=== PATIENT | male | born 1970 | race Caucasian/White ===

== ENCOUNTER 2024-06-09 12:28 | Inpatient (IN) ==
--- NOTE | 2024-06-09 12:57 | XRay Report ---
XR chest 1V not portable HISTORY: 53 years-old Male Chest pain, nonspecific COMPARISON: None TECHNIQUE: AP view of the chest FINDINGS: Heart size is enlarged. Pulmonary vascular congestion. No pneumothorax. Trace pleural effusions with mild bibasilar opacities. Bones appear intact. IMPRESSION: 1. Cardiomegaly with pulmonary vascular congestion. 2. Trace pleural effusions with mild bibasilar atelectasis. ACT 112: Negative or not required by law. The above report was generated using voice recognition software. It may contain grammatical, syntax o r spelling errors. Electronically signed by: Avni Mckeon M.D. 06/09/2024 12:55 PM
[2024-06-09 13:02] LABS: Basophils # (auto) 0.07 K/uL (0.00-0.20); Basophils % (auto) 0.7 %; Eosinophils # (auto) 0.16 K/uL (0.00-0.50); Eosinophils % (auto) 1.6 %; Hematocrit (blood only) 45.2 % (42.0-52.0); Immature Granulocytes # (auto) 0.06 K/uL (0.01-0.20); Immature Granulocytes % (auto) 0.6 %; Lymphocytes # (auto) 1.98 K/uL (1.20-3.40); Lymphocytes % (auto) 20.3 %; Mean Corpuscular Hemoglobin 27.9 pg (25.0-34.0); Mean Corpuscular Hgb Conc 33.2 g/dL (32.0-36.0); Mean Platelet Volume 10.2 fL (9.4-12.4); Monocytes % (auto) 5.1 %; Neutrophils # (auto) 6.97 K/uL (1.40-6.50); Neutrophils % (auto) 71.7 %; Platelet Count 237 K/uL (130-400); RDW Coefficient of Variation 13.6 % (11.5-14.5); RDW Standard Deviation 41.1 fL (36.4-46.3); Red Blood Count 5.38 M/uL (4.70-6.10); White Blood Count 9.74 K/ul (4.8-10.8)
[2024-06-09 13:16] LABS: Albumin Globulin Ratio 1.4 (0.9-2); Albumin Level 4.1 gm/dl (3.4-5.0); BUN Creatinine Ratio 12.6 (10-20); Bilirubin,Total 0.5 mg/dl (0.2-1.0); Calcium 9.3 mg/dl (8.6-10.3); Creatinine Clr Calc Pharmacy 79.6 ml/min; Potassium 3.8 mmol/L (3.5-5.1); Total Protein 7.1 gm/dl (6.0-8.3)
[2024-06-09 13:26] LABS: Partial Thromboplastin Time 27 Seconds (21-31); Prothrombin Time 11.3 Seconds (9.0-12.0)
[2024-06-09 13:39] LABS: Troponin I High Sensitivity 57.6 pg/ml (0-20)
[2024-06-09] MEDS: OPTIRAY 320 125ml IV ONE (14:31)
--- NOTE | 2024-06-09 14:45 | CT Scan Report ---
CT pulmonary angiogram with IV contrast History: Chest pain COMPARISON: None TECHNIQUE: CT angiography of the chest was performed without IV contrast followed by IV contrast, including 3D post processing CTA image reconstruction. Dose reduction techniques were achieved by using automatic exposure control and/or adjustment of mA and/or kV according to patient size and/or use of iterative reconstruction technique. FINDINGS: Diagnostic quality: Adequate There is no evidence for pulmonary embolism. The heart is enlarged. There is no pericardial effusion. There are no abnormally enlarged hilar or mediastinal lymph nodes. The central tracheobronchial tree is clear. There are moderate bilateral pleural effusions. Interstitial pulmonary edema seen throughout the lung bases. Limited visualized upper abdomen. No destructive osseous changes are seen. IMPRESSION: No evidence for pulmonary embolism. Cardiomegaly, pulmonary edema, and pleural effusions, which may be related to CHF Electronically signed by Derek Garcia 06-09-2024 2:45 PM
--- NOTE | 2024-06-09 15:13 | Emergency Department Note ---
Impression & Plan Acute non-ST elevation myocardial infarction (NSTEMI), New onset of congestive heart failure ED Provider Note NAME: ESTHER MORATAYA AGE: 53 SEX: M : 1970 ARRIVES VIA: Walk-In INFORMANT: Patient, ED PROVIDER(S): Prashanth Millan MD CHIEF COMPLAINT: Shortness of breath, chest pain HPI: This is a 53-year-old male presenting for chest pain shortness of breath. Patient notes that for the past 2 weeks he has had chest tightness. He notes he is getting increasingly short of breath with exertion. He notes that his chest tightness is still there and getting worse as well. He has applied chest pain occasionally as well. He notes pain rating down his left arm/hand. He reports no syncope. Patient's family history of high blood pressure, no other significant medical history. Has not seen a doctor in over 1 year. ROS: See above HPI for pertinent positives & negatives. A total of 10 systems reviewed and were otherwise negative. PAST MEDICAL HISTORY: See Below PAST SURGICAL HISTORY: See Below FAMILY HISTORY: See Below SOCIAL HISTORY: See Below HOME MEDICATIONS: See Below ALLERGIES: See Below VITALS: See Below PHYSICAL EXAMINATION: General: Chronically unwell appearing Head: Normocephalic and atraumatic Eyes: Normal inspection, extraocular muscles intact Ear, nose, throat: Normal external exam Neck: Normal range of motion Respiratory: speaking in full sentences, symmetric chest rise, no respiratory distress Cardiovascular: Tachycardic regular rate/rhythm Extremities: moves all extremities Neuro: The patient awake and alert, appropriately conversive, symmetric faces, no focal deficits MEDICAL DECISION MAKING: Is a 53-year-old male presented for chest pain and shortness of breath. -Consider ACS, PE, CHF, NSTEMI with sequelae of CHF -ECG independently interpreted by me with sinus tachycardia rate of 112, normal AL, normal QRS, normal QTc, no ST segment elevations consistent with STEMI criteria -Chest x-ray reveals cardiomegaly with pulm vascular congestion, no pneumothorax -Blood work is reviewed showing no leukocytosis or anemia. His lites are within normal limits. Creatinine is elevated 1.43. His troponin is elevated over 57. -Due to his elevated troponin, tachycardia, shortness of breath will rule out PE. -CT imaging of the chest reveals cardiomegaly, pleural effusions. No PEs are noted upon Independently interpreted interpretation. -Official radiology read confirms similar. -Will give heparin at this time for NSTEMI, Lasix for suspected CHF. Differential diagnosis: See above ER treatment provided: See below Diagnostics interpreted by me: ECG: See above] Cardiac Monitoring: An order was placed for continuous cardiac monitoring. The monitor shows a rate of 115 with sinus rhythm. Laboratory studies: As stated above and show below. Imaging studies: See below. Critical Care Note: I have personally spent 45 minutes of critical care time in the direct management of this patient. This includes bedside care, interpretation of diagnostic studies, and testing, discussion with consultants, patient, and family members, and other required patient management activities. This 45 minutes is in excess of all separately billable procedures. Past Med/Surg History Problem List (Updated 06/09/24 @ 19:01 by Prashanth Millan MD) New onset of congestive heart failure (Acute) Acute non-ST elevation myocardial infarction (NSTEMI) (Acute) Acute kidney injury Hypertension Shortness of breath Social History Smoking Status: Never smoker Tobacco Type: Smokeless Tobacco (Dip or Chew) Smoking End Date: t; Do You Dip or Chew Tobacco: Yes; Tobacco Cessation Education Requested by Patient: No Hx Alcohol Use: Yes Alcohol type: beer Hx Substance Use: No Preferred Language: Bahraini Communication Ability: Effective Manager Dental Required: No Beliefs That Will Affect Care: None Current Living Situation: Alone Current Living Situation Comment: in camper or motel while remodeling home Other Information That Helps Us Care for You: No Feels Safe at Home: Yes Safety Concerns: Feels Safe At This Time Assistive Devices: None Allergies Allergies Allergy/AdvReac Type Severity Reaction Status Date / Time No Known Allergies Allergy Unverified 06/09/24 15:57 Home Meds Home Medications Medication Instructions Recorded Confirmed hydralazine 50 mg tablet 50 mg 06/09/24 Results & Data (ED) Vital Signs Vital Signs - 24 hr 06/09/24 12:31 06/09/24 12:58 06/09/24 12:58 Temperature 36.4 C L Temperature Source Temporal Artery Scan Pulse Rate 121 H Pulse Rate [Apical] Pulse Rhythm Regular Pulse Rhythm [Apical] Pulse Strength Normal Pulse Strength [Apical] Respiratory Rate 20 Respiratory Effort / Characteristics Non-Labored Spontaneous Respiratory Depth Normal Respiratory Pattern Regular Blood Pressure 210/149 H Blood Pressure Mean 169 Pulse Oximetry 96 Oxygen Delivery Method Room Air Room Air Room Air Sepsis Recent Fever Within 48 Hours No Sepsis New/Unexplained Change in Mental Status N/A Sepsis Action Taken by Nursing No Action Required 06/09/24 13:12 06/09/24 13:14 06/09/24 13:24 Temperature Temperature Source Pulse Rate 104 H 102 H 107 H Pulse Rate [Apical] Pulse Rhythm Pulse Rhythm [Apical] Pulse Strength Pulse Strength [Apical] Respiratory Rate Respiratory Effort / Characteristics Respiratory Depth Respiratory Pattern Blood Pressure Blood Pressure Mean Pulse Oximetry Oxygen Delivery Method Sepsis Recent Fever Within 48 Hours Sepsis New/Unexplained Change in Mental Status Sepsis Action Taken by Nursing 06/09/24 13:30 06/09/24 13:30 06/09/24 13:42 Temperature Temperature Source Pulse Rate 103 H 85 Pulse Rate [Apical] Pulse Rhythm Pulse Rhythm [Apical] Pulse Strength Pulse Strength [Apical] Respiratory Rate 22 Respiratory Effort / Characteristics Respiratory Depth Respiratory Pattern Blood Pressure 186/130 H Blood Pressure Mean 148 Pulse Oximetry Oxygen Delivery Method Sepsis Recent Fever Within 48 Hours Sepsis New/Unexplained Change in Mental Status Sepsis Action Taken by Nursing 06/09/24 15:00 Temperature Temperature Source Pulse Rate Pulse Rate [Apical] 109 H Pulse Rhythm Pulse Rhythm [Apical] Regular Pulse Strength Pulse Strength [Apical] Normal Respiratory Rate 24 Respiratory Effort / Characteristics Non-Labored Spontaneous Respiratory Depth Normal Respiratory Pattern Regular Blood Pressure Blood Pressure Mean Pulse Oximetry 96 Oxygen Delivery Method Room Air Sepsis Recent Fever Within 48 Hours Sepsis New/Unexplained Change in Mental Status Sepsis Action Taken by Nursing Laboratory Data 06/09/24 12:40 06/09/24 12:40 Lab Results 06/09/24 06/09/24 Range/Units 12:40 14:42 WBC 9.74 (4.8-10.8) K/ul RBC 5.38 (4.70-6.10) M/uL Hgb 15.0 (14.0-18.0) g/dl Hct 45.2 (42.0-52.0) % MCV 84.0 (80.0-100.0) fL MCH 27.9 (25.0-34.0) pg MCHC 33.2 (32.0-36.0) g/dL RDW Std Deviation 41.1 (36.4-46.3) fL RDW Coeff of Doris 13.6 (11.5-14.5) % Plt Count 237 (130-400) K/uL MPV 10.2 (9.4-12.4) fL Immature Gran % (Auto) 0.6 % Neut % (Auto) 71.7 % Lymph % (Auto) 20.3 % [place] % (Auto) 5.1 % Eos % (Auto) 1.6 % Baso % (Auto) 0.7 % Neut # (Auto) 6.97 H (1.40-6.50) K/uL Lymph # (Auto) 1.98 (1.20-3.40) K/uL [place] # (Auto) 0.50 (0.11-0.59) K/uL Eos # (Auto) 0.16 (0.00-0.50) K/uL Baso # (Auto) 0.07 (0.00-0.20) K/uL Immature Gran # (Auto) 0.06 (0.01-0.20) K/uL PT 11.3 (9.0-12.0) Seconds INR 1.0 (0.9-1.1) APTT 27 (21-31) Seconds PTT Ratio 1.0 Sodium 141 (136-145) mmol/L Potassium 3.8 (3.5-5.1) mmol/L Chloride 106 (98-107) mmol/L Carbon Dioxide 26 (21-32) mmol/L Anion Gap 9 (3-11) BUN 18 (6-23) mg/dl Creatinine 1.43 H (0.6-1.4) mg/dl Est Cr Clr Drug Dosing 79.6 ml/min eGFR 58.59 BUN/Creatinine Ratio 12.6 (10-20) Glucose 155 H (70-99(Fasting)) mg/dl Calcium 9.3 (8.6-10.3) mg/dl Total Bilirubin 0.5 (0.2-1.0) mg/dl AST 30 (13-39) U/L ALT 57 H (7-52) U/L Alkaline Phosphatase 63 (34-104) U/L Troponin I High Sens 57.6 H* 59.0 H* (0-20) pg/ml Total Protein 7.1 (6.0-8.3) gm/dl Albumin 4.1 (3.4-5.0) gm/dl Globulin 3.0 (2.5-4.0) gm/dl Albumin/Globulin Ratio 1.4 (0.9-2) Administered Medications Heparin Sodium/Dextrose (Heparin Sodium/Dextrose) 25,000 units in 500 mls @ 20 mls/hr IV .Q24H TERRELL; Protocol Stop: 07/09/24 16:14 Last Admin: 06/09/24 16:09 Dose: 1,000 units/hr, 20 mls/hr Documented By: AN Co-signed By: Discontinued Medications Aspirin (Aspirin 81 Mg Ectab) 81 mg PO NOW STA Stop: 06/09/24 16:06 Last Admin: 06/09/24 16:26 Dose: 81 mg Documented By: Furosemide (Furosemide 40 Mg/4 Ml Vial) 40 mg IV ONE ONE Stop: 06/09/24 15:04 Last Admin: 06/09/24 15:45 Dose: 40 mg Documented By: AN Heparin Sodium/Dextrose (Heparin Iv Adult Wt-Based Low-Dose *No* Initial Bolus Protocol) 1 each IV ONE STA; Protocol Stop: 06/09/24 15:05 Last Admin: 06/09/24 16:11 Dose: Not Given Documented By: AN Hydralazine HCl (Hydralazine Hcl 20 Mg/Ml Vial) 10 mg IV NOW STA Stop: 06/09/24 16:04 Last Admin: 06/09/24 16:27 Dose: 10 mg Documented By: Ioversol (Optiray 320 125ml) 112 ml IV ONCE ONE Stop: 06/09/24 14:32 Last Admin: 06/09/24 14:31 Dose: 112 ml Documented By: LASHAE Metoprolol Tartrate (Metoprolol Tartrate 25 Mg Tab) 12.5 mg PO NOW STA Stop: 06/09/24 16:33 Last Admin: 06/09/24 16:48 Dose: 12.5 mg Documented By: SORAYA Metoprolol Tartrate (Metoprolol Tartrate 25 Mg Tab) 25 mg PO ONE ONE Stop: 06/09/24 18:13 Last Admin: 06/09/24 18:29 Dose: 25 mg Documented By: GONZALEZ Imaging Data Radiologist's Impression: Chest X-Ray 06/09/24 12:35 XR chest 1V not portable HISTORY: 53 years-old Male Chest pain, nonspecific COMPARISON: None TECHNIQUE: AP view of the chest FINDINGS: Heart size is enlarged. Pulmonary vascular congestion. No pneumothorax. Trace pleural effusions with mild bibasilar opacities. Bones appear intact. IMPRESSION: 1. Cardiomegaly with pulmonary vascular congestion. 2. Trace pleural effusions with mild bibasilar atelectasis. ACT 112: Negative or not required by law. The above report was generated using voice recognition software. It may contain grammatical, syntax or spelling errors. Electronically signed by: Avni Mckeon M.D. 06/09/2024 12:55 PM Chest CTA 06/09/24 14:03 CT pulmonary angiogram with IV contrast History: Chest pain COMPARISON: None TECHNIQUE: CT angiography of the chest was performed without IV contrast followed by IV contrast, including 3D post processing CTA image reconstruction. Dose reduction techniques were achieved by using automatic exposure control and/or adjustment of mA and/or kV according to patient size and/or use of iterative reconstruction technique. FINDINGS: Diagnostic quality: Adequate There is no evidence for pulmonary embolism. The heart is enlarged. There is no pericardial effusion. There are no abnormally enlarged hilar or mediastinal lymph nodes. The central tracheobronchial tree is clear. There are moderate bilateral pleural effusions. Interstitial pulmonary edema seen throughout the lung bases. Limited visualized upper abdomen. No destructive osseous changes are seen. IMPRESSION: No evidence for pulmonary embolism. Cardiomegaly, pulmonary edema, and pleural effusions, which may be related to CHF Electronically signed by Derek Garcia 06-09-2024 2:45 PM Discharge Plan Visit Data Chief Complaint: Cardiac Assessment Stated Complaint: TIGHT CHEST, SOB, L HAND NUMBNESS ED Provider: Prashanth Millan Discharge Problem: Acute non-ST elevation myocardial infarction (NSTEMI), New onset of congestive heart failure Patient Disposition: Admitted As Inpatient Discharge Instructions Interventions: ED Discharge Assessment Last Done: 06/09/24 17:12
[2024-06-09] MEDS ORDERED: HEPARIN SODIUM/DEXTROSE 25,000 UNITS/500 ML BAG IV SCH (15:30)
[2024-06-09] MEDS: FUROSEMIDE 40 MG/4 ML VIAL IV ONE ×2 (15:45→21:05)
--- NOTE | 2024-06-09 15:48 | History & Physical Report ---
Date of Service June 09, 2024 Assessment & Plan (1) Shortness of breath: (2) Hypertension: (3) Acute kidney injury: Plan Pt is a 53 yo male with a past medical history of HTN and bilateral knee arthritis s/p multiple knee surgeries that presents to the hospital on 06/09 for progressive shortness of breath x3 weeks. #Shortness of breath - CXR and CT chest on admission showed cardiomegaly, pulm vasc congestion, trace pleural effusions all suggestive of volume overload - EKG without ST elevations - trop 57 -> 59 on admission - ultimately suspect his imaging/labs most suggest CHF as the cause of his presenting symptoms - given 40 mg IV lasix by ED, will repeat dose tonight at 8pm along with a pm po hydralazine dose - am lipids and HA1c ordered - echo ordered; pending - consider cardiology consult once echo is resulted #HTN - BPs on admission significantly elevated, last dose of home hydralazine was 100 mg at 7 am - at home has hydralazine 50 mg BID but takes as a once 100mg qam dose - will give hydralazine 10 mg IV + metoprolol 12.5 po now - tomorrow to start po hydralazine 50 mg as TID dosing (home is BID) but may need to switch to a new oral medication here or outpatient since compliance with dosing more than once a day may be difficult - added metoprolol 12.5 qam #MARIUM - Cr 1.42 on admission, no hx CKD per pt - given once daily 1770-4435 mg ibuprofen use for knee arthritis, suspect prerenal in nature - hold NSAIDs and other nephrotoxic agents at this time - in setting of likely CHF, encouraged po fluids DVT ppx: heparin pending echo and possible cardio eval Lines: PIV, no linda on admission IVF: none Dispo: Med/surg + Tele History of Present Illness Chief Complaint: Shortness of breath Primary Care Provider: Alexander Soto MD Pt is a 53 yo male with a past medical history of HTN and bilateral knee arthritis s/p multiple knee surgeries that presents to the hospital on 06/09 for progressive shortness of breath x3 weeks. He states that prior to the 3 weeks he felt fine, no issues with shortness of breath at rest or with activity. He states he never really had any chest pain but did notice some chest tightness this morning when picking up his work bag, which is ultimately prompted him to be evaluated today. The shortness of breath had been constant for 3 weeks, maybe worse with activity but unclear if worse when laying flat or going anything in particular. He states he has to work on Tuesday so he would like to get out of here before then. He states his dad has a history of NC but he was not sure at what age. He states that he was told at some point he may have had a heart attack but does not follow with cardiology and has never had a heart stent placed. He last saw his PCP over 1 year ago. His HTN is treated with hydralazine at home, of which he is prescribed as 50 mg BID but he states he knows he will forget to take the evening dose so he just takes it instead as 100 mg in the morning. He states he also uses ibuprofen almost daily and will take 0957-8219 mg once in the morning before work with dose depending on how much work he needs to do that day due to his knee pain from arthritis, but states that he seems to only need to take it once daily. He states he was also on metformin in the past but states he stopped that a long while ago and that he was never formally diabetic. He states right now he feels relatively fine, some improvement in his SOB. No nausea or vomiting. No headaches or vision changes. Alcohol use: denies Tobacco use: snuff, daily Other drug use: denies Allergies Allergy/AdvReac Type Severity Reaction Status Date / Time No Known Allergies Allergy Unverified 06/09/24 15:57 Home Medications Medication Instructions Recorded Confirmed Type hydralazine 50 mg tablet 50 mg 06/09/24 History Past Med/Surg History Problem List (Updated 06/09/24 @ 16:33 by Kim Kyle DO) Acute kidney injury Hypertension Shortness of breath Social History Smoking Status: Never smoker Tobacco Type: Smokeless Tobacco (Dip or Chew) Smoking End Date: t; Do You Dip or Chew Tobacco: Yes; Tobacco Cessation Education Requested by Patient: No Hx Alcohol Use: Yes Alcohol type: beer Hx Substance Use: No Preferred Language: Bengali Communication Ability: Effective Seat Joiner Required: No Beliefs That Will Affect Care: None Current Living Situation: Alone Current Living Situation Comment: in camper or motel while remodeling home Other Information That Helps Us Care for You: No Feels Safe at Home: Yes Safety Concerns: Feels Safe At This Time Assistive Devices: None Review of Systems Review of Systems: Per HPI. Physical Exam Physical Exam: General: Alert and oriented, no acute distress, HEENT: Normocephalic, moist oral mucosa, Cardio: Regular rate and rhythm, no murmur, Resp: Lungs clear to auscultation b/l, no wheezes or rhonchi, GI: Soft and nontender, nondistended, bowel sounds active Skin: Warm, pink, dry, Results & Data Results & Data Vital Signs (Past 12 Hours) Vital Signs Temp Pulse Resp BP Pulse Ox O2 Del Method 06/09/24 13:42 85 06/09/24 13:30 186/130 H 06/09/24 13:30 103 H 22 06/09/24 13:24 107 H 06/09/24 13:14 102 H 06/09/24 13:12 104 H 06/09/24 12:58 Room Air 06/09/24 12:58 Room Air 06/09/24 12:31 36.4 C L 121 H 20 210/149 H 96 Room Air Supervising Physician Co-Signing Physician Notes Attending Physician Supervision Note: I independently interviewed and examined the patient and verified the dodson history and physical, reviewed labs and image studies and agree with findings and care plan noted above. 53 y/o with h/o HTN and knee arthritis here with 2 wks of chest pressure and difficulty breathing. Does not always take hydralazine. Was taking 1400-1800mgs of ibuprofen. o/e - comfortable, tachycardic, regular rhythm, JVD+, no pedal edema, Abdomen - soft, NT/ND acute heart failure - new onset, ekg with no ST T wave changes, -echo ordered -diurese with lasix IV, I and O. -follow renal fx Chest pain with Troponin elevation - chest pain for 2 wks. possibly had NSTEMI. -check echo -heparin drip -aspirin -beta shakila 50mgs bid -lipid panel in am HTN - increase hydralazine to 50mgs tid. -metoprolol added -IV hydralazine doses prn MARIUM - likely from chf and nsaid use. follow renal fx. Resident Activity Tracking Resident Involvement: Resident Care Provided Care Provided: Adult Hospital Medicine
[2024-06-09] MEDS: HEPARIN SODIUM/DEXTROSE 25,000 UNITS/500 ML BAG IV SCH (16:09)
[2024-06-09] MEDS: Heparin IV Adult Wt-Based Low-Dose *NO* INITIAL Bolus Protocol IV STA (16:11)
[2024-06-09] MEDS: ASPIRIN 81 MG ECTAB PO STA (16:26)
[2024-06-09] MEDS: hydrALAZINE HCL 20 MG/ML VIAL IV STA ×2 (16:27→19:05)
[2024-06-09] MEDS: METOPROLOL TARTRATE 25 MG TAB PO STA (16:48)
[2024-06-09] MEDS ORDERED: ONDANSETRON INJ 2 MG/ML 2 ML VIAL IV PRN (17:40)
[2024-06-09] MEDS ORDERED: NITROGLYCERIN SL 0.4 MG/TAB TAB SL PRN (17:40)
[2024-06-09] MEDS ORDERED: POLYETHYLENE (MIRALAX) 17 GM PACK PO PRN (17:40)
[2024-06-09] MEDS: METOPROLOL TARTRATE 25 MG TAB PO ONE (18:29)
[2024-06-09] MEDS: hydrALAZINE TAB 50 MG TAB PO SCH (21:06)
[2024-06-09 23:34] LABS: ANTI-Xa, UFH(UnfractionatedHep 0.11 IU/ml (0.3-0.7)
[2024-06-10 05:54] LABS: Basophils # (auto) 0.06 K/uL (0.00-0.20); Basophils % (auto) 0.6 %; Eosinophils % (auto) 3.2 %; Hematocrit (blood only) 42.1 % (42.0-52.0); Hemoglobin 14.1 g/dl (14.0-18.0); Immature Granulocytes # (auto) 0.04 K/uL (0.01-0.20); Immature Granulocytes % (auto) 0.4 %; Lymphocytes # (auto) 2.21 K/uL (1.20-3.40); Lymphocytes % (auto) 23.7 %; Mean Corpuscular Hgb Conc 33.5 g/dL (32.0-36.0); Mean Corpuscular Volume 83.7 fL (80.0-100.0); Mean Platelet Volume 10.6 fL (9.4-12.4); Monocytes % (auto) 6.4 %; Neutrophils # (auto) 6.13 K/uL (1.40-6.50); Neutrophils % (auto) 65.7 %; Platelet Count 221 K/uL (130-400); RDW Coefficient of Variation 13.5 % (11.5-14.5); RDW Standard Deviation 41.1 fL (36.4-46.3); Red Blood Count 5.03 M/uL (4.70-6.10); White Blood Count 9.34 K/ul (4.8-10.8)
[2024-06-10] MEDS: ACETAMINOPHEN 325 MG TAB PO PRN (06:09)
[2024-06-10 06:17] LABS: Albumin Globulin Ratio 1.4 (0.9-2); Albumin Level 3.8 gm/dl (3.4-5.0); BUN Creatinine Ratio 13.3 (10-20); Bilirubin,Total 0.6 mg/dl (0.2-1.0); Chol HDL Ratio 4.7 (0-5); Creatinine Clr Calc Pharmacy 75.9 ml/min; Globulin 2.7 gm/dl (2.5-4.0); Potassium 3.9 mmol/L (3.5-5.1); Total Protein 6.5 gm/dl (6.0-8.3)
[2024-06-10 06:19] LABS: ANTI-Xa, UFH(UnfractionatedHep 0.12 IU/ml (0.3-0.7)
[2024-06-10] MEDS: HEPARIN SOD (PORCINE) 1000 UNIT/ML IV ONE ×2 (06:40)
[2024-06-10 07:26] LABS: Estimated Average Glucose 131 mg/dl; Hemoglobin A1C 6.2 % (4.5-5.6)
[2024-06-10] MEDS: METOPROLOL TARTRATE 50 MG TAB PO SCH (08:07)
[2024-06-10] MEDS: FUROSEMIDE 40 MG/4 ML VIAL IV ONE (08:27)
[2024-06-10] MEDS ORDERED: METOPROLOL TARTRATE 25 MG TAB PO SCH (09:00)
--- NOTE | 2024-06-10 11:19 | Discharge Summary ---
Date of Service June 10, 2024 Admission HPI Per Admitting Provider Pt is a 53 yo male with a past medical history of HTN and bilateral knee arthritis s/p multiple knee surgeries that presents to the hospital on 06/09 for progressive shortness of breath x3 weeks. He states that prior to the 3 weeks he felt fine, no issues with shortness of breath at rest or with activity. He states he never really had any chest pain but did notice some chest tightness this morning when picking up his work bag, which is ultimately prompted him to be evaluated today. The shortness of breath had been constant for 3 weeks, maybe worse with activity but unclear if worse when laying flat or going anything in particular. He states he has to work on Tuesday so he would like to get out of here before then. He states his dad has a history of NC but he was not sure at what age. He states that he was told at some point he may have had a heart attack but does not follow with cardiology and has never had a heart stent placed. He last saw his PCP over 1 year ago. His HTN is treated with hydralazine at home, of which he is prescribed as 50 mg BID but he states he knows he will forget to take the evening dose so he just takes it instead as 100 mg in the morning. He states he also uses ibuprofen almost daily and will take 1023-1743 mg once in the morning before work with dose depending on how much work he needs to do that day due to his knee pain from arthritis, but states that he seems to only need to take it once daily. He states he was also on metformin in the past but states he stopped that a long while ago and that he was never formally diabetic. He states right now he feels relatively fine, some improvement in his SOB. No nausea or vomiting. No headaches or vision changes. Alcohol use: denies Tobacco use: snuff, daily Other drug use: denies Admission Exam Per Admitting Provider General: Alert and oriented, no acute distress, HEENT: Normocephalic, moist oral mucosa, Cardio: Regular rate and rhythm, no murmur, Resp: Lungs clear to auscultation b/l, no wheezes or rhonchi, GI: Soft and nontender, nondistended, bowel sounds active Skin: Warm, pink, dry, Principal Diagnosis Congestive heart failure, new diagnosis Discharge Exam General: Alert and oriented, no acute distress, HEENT: Normocephalic, moist oral mucosa, Cardio: Regular rate and rhythm, no murmur, Resp: Lungs clear to auscultation b/l, no wheezes or rhonchi, GI: Soft and nontender, nondistended, bowel sounds active Skin: Warm, pink, dry, Discharge Data Allergies Allergy/AdvReac Type Severity Reaction Status Date / Time No Known Allergies Allergy Unverified 06/09/24 15:57 Consultations 06/09/24 15:25 ED Decision to Admit Stat 06/10/24 08:30 Consult Cardiology Routine Ordered Studies 06/09/24 14:03 CT for pulmonary embolism PE [CT angio chest PE protocol] Stat Hospital Course (1) Shortness of breath: (2) Hypertension: (3) Acute kidney injury: Plan Pt is a 53 yo male with a past medical history of HTN and bilateral knee arthritis s/p multiple knee surgeries that presents to the hospital on 06/09 for progressive shortness of breath x3 weeks. Overall discussed case with pt this morning that pt has CHF +/- NSTEMI. Pt states he understands but is wishing to sign out AMA. Advised pt at this point that his kidney function has not improved and we recommend monitoring until improvement in renal function, especially in setting of new CHF, and we also recommend continued IV lasix for his presenting volume overload. Pt voiced understanding for these concerns but states "if it was severe enough, someone would have done something by now, but I have been sitting here for hours doing nothing." Discussed with pt that we strongly do not recommend he go home as he was admitted for new dx of CHF. Pt refused pm dose of lasix but agreeable to am dose of IV lasix this morning. Will send new medications to pharmacy for pt to take given new HFrEF diagnosis. Advised pt to get outpatient sleep study for eval of MORTEZA. Advised he no longer take ibuprofen or NSAID products (Advil, Aleve, Naproxen) due to compromised kidney function, especially in the setting of CHF incompletely treated. Can use tylenol for pain. Pt insists he is not worried about his kidneys and "they will turn around." Pt counseled on the risks of going home at this point including but not limited to; worsening kidney function that may eventually lead to uremia and need for dialysis, worsening cardiac function that can lead to further overload leading to hypoxia, arrhythmia, and . Pt voiced understanding and still wishing to leave AMA. He needs lab work BMP done on Tuesday. Sent medications to pharmacy including entreso, metoprolol, aspirin, furosemide. To stop hydralazine on discharge. #Congestive heart failure - CXR and CT chest on admission showed cardiomegaly, pulm vasc congestion, trace pleural effusions all suggestive of volume overload - EKG without ST elevations, trop 57 -> 59 on admission - HA1c 6.2%, LDL 127 - echo ordered 06/10/2024; EF 30-35% with global hypokinesis and mild pulm HTN - cardiology consulted; able to talk to pt before discharge, pt still signed out AMA against hospitalist and cardiology recommendations #HTN - BPs on admission significantly elevated, last dose of home hydralazine was 100 mg at 7 am on day of admission - multiple medications given to bring down BP, IV lasix + hydralazine + metoprolol - at home has hydralazine 50 mg BID but takes as a once 100mg qam dose - see list of medication changes noted on discharge instructions, suspect HTN may be resistant to tx given untreated MORTEZA #MARIUM - Cr 1.42 on admission, no hx CKD per pt - given once daily 9145-8323 mg ibuprofen use for knee arthritis, suspect prerenal in nature - hold NSAIDs and other nephrotoxic agents at this time - in setting of likely CHF, encouraged po fluids -Cr 1.5 today, not improved #MORTEZA, suspected - overnight with beat pauses with artifact prior to beats suggestive of MORTEZA - pt has no known history of MORTEZA, recommend outpatient sleep study for further evaluation of this Total Time Total Time Spent Total Time Spent (In Minutes): As per attending attestation Discharge Plan Discharge Items Patient Disposition: Against Medical Advice Reason For Visit: SHORTNESS OF BREATH Activity: As commented below Activity Comment: Activity as tolerated Non-emergency contact: Primary Care Provider Follow-up/Referrals: Alexander Soto MD [Primary Care Provider] - Addtl Shuttle Final Inspector Provider Instructions: Per Dr. Donato cardiology, please follow up with a faucets assembler as soon as possible as you need to have a heart catheterization at some point soon. You have a new diagnosis of heart failure with low function of your heart. You will need to take all medications we have sent to your pharmacy as prescribed to prevent further disease that will lead to . Do NOT take any NSAIDs for pain going forward until reassessed by our primary care physician, including no ibuprofen, Advil, Motrin, Aleve, or naproxen. These medications can make your kidney function worse, and if your kidneys continue to decline you may needed admitted to the hospital again and risk damaging your kidneys enough to need dialysis. Use tylenol up to 1000 mg three times daily for pain. Please get lab work this Tuesday. You have been given a physical script for this prior to leaving the hospital. The number for Dr. Donato. the faucets assembler you saw in the hospital is [phone]. If symptoms worsen, come to the ER immediately. Pending Studies at Discharge: No Stand-Alone Forms: My [facility] [email or web address], Smoking Cessation Medications and DC Order Prescriptions: New furosemide 40 mg tablet 40 mg PO DAILY Qty: 30 1RF metoprolol succinate 50 mg capsule,sprinkle,ER 24hr 50 mg PO DAILY Qty: 30 1RF aspirin 81 mg tablet,delayed release (DR/EC) 81 mg PO DAILY Qty: 30 1RF Entresto 24-26 mg tablet 1 tab PO BID Qty: 60 1RF Discontinued hydralazine 50 mg tablet 50 mg PO BID ibuprofen 200 mg Tablet 1,200 - 1,400 mg PO QAM Rx Instructions: Per pt he takes between 1200mg - 1400mg in the every morning. Discharge Orders: Left Against Medical Advice (Routine); Ordered 06/10/24 Ordered By: Kim Kyle Admission Data Admit Date/Time: 06/09/24 16:02 Attending Provider: Nay Sol Admit Provider: Kim Kyle Primary Care Provider: Alexander Soto Other Providers: Nay Sol; Jono Gillette Supervising Physician Co-Signing Physician Notes Attending Physician Supervision Note: I independently interviewed and examined the patient and verified the dodson history and physical, reviewed labs and image studies and agree with findings and care plan noted above. 53 y/o with h/o HTN and knee arthritis here with 2 wks of chest pressure and difficulty breathing. Does not always take hydralazine. Was taking 1400-1800mgs of ibuprofen. This morning denied any chest pain. no shortness of breath. o/e - comfortable, tachycardic, regular rhythm, JVD+, no pedal edema, Abdomen - soft, NT/ND acute systolic heart failure - new onset, ekg with no ST T wave changes, -echo EF 30-35%, Pul HTN, -diuresed with lasix IV. -added entresto and metoprolol NSTEMI - Chest pain with Troponin elevation - chest pain for 2 wks. -Kept on heparin drip. -Echo with global hypokinesis. -aspirin -beta shakila 50mgs daily -lipid panel - LDL 127. Hasn't tolerated statins in past. -Needs [facility] HTN - Metoprolol and Entresto added. Was on hydralazine - advised to hold and check BP readings at home. If elevated - resume hydralazine. MARIUM - likely from chf and nsaid use. since starting entresto - recheck renal fx in one week. Evaluated by cardiology and recommended continued hospitalization for diuresis and LHC. Wayne declined staying any further in the hospital and left against medical advise. Risk of sudden , respiratory failure explained to him. Extensive instructions provided to him. Resident Activity Tracking Resident Involvement: Resident Care Provided Care Provided: Adult Hospital Medicine
--- NOTE | 2024-06-10 11:31 | XCELERA ---
[id number]
--- NOTE | 2024-06-10 11:31 | Cardiology Consultation ---
Date of Consultation June 10, 2024 Assessment & Plan (1) Acute HFrEF (heart failure with reduced ejection fraction): (2) Cardiomyopathy: (3) Pulmonary hypertension: (4) Hypertension: (5) Dyslipidemia: (6) Elevated troponin: (7) Chest pain: Plan ASSESSMENT/PLAN: 1. Acute heart failure with reduced EF: Discussed the diagnosis with patient. Discussed that he would likely benefit from further diuresis. Recommend metoprolol succinate, which has already been initiated by primary hospitalist service 50 mg. Recommend Entresto low-dose to begin tonight. Recommend mineralocorticoid receptor antagonist and SGLT2 inhibitor in the next 1 to 2 days. Discussed the importance of a low-sodium diet, less than 2000 mg daily, which will be difficult for him as he stays in a motel for work most days of the week. Recommend daily weights, which she is not able to participate in due to his travel for work. Recommend continued hospitalization but he declines and is leaving AGAINST MEDICAL ADVICE. Because he is leaving AGAINST MEDICAL ADVICE, GDMT will not be fully initiated prior to discharge. Potential risk of this discussed with him and he expressed understanding. TSH ordered. 2. Cardiomyopathy: Etiology uncertain but given his risk factors and age, recommend coronary angiography for evaluation of CAD. Has chest discomfort, which could represent angina but also may be due to his heart failure. He is not willing to remain hospitalized to undergo further evaluation and plans on leaving AMA during visit today. Discussed that if he has significant CAD, the potential benefit for revascularization. Discussed increased risk of sudden cardiac from ventricular arrhythmia and indication for ICD if LV systolic function does not improve with appropriate therapy after 3 months. Given risk factors for CAD, recommend aspirin 81 mg daily. 3. Hypertension: Blood pressure normotensive to hypertensive while here. This should improve with heart failure therapy as listed above. 4. Dyslipidemia: Intolerant to 1 statin therapy but he does not recall which therapy it is. Given that he will be initiated on other therapies, statin therapy can be initiated in the outpatient setting. 5. Pulmonary hypertension: Likely due to heart failure. Heart failure therapy as recommended. 6. CKD: Unclear what his baseline renal function is but mildly abnormal while here. Monitor closely, especially with heart failure therapy initiation. 7. Elevated troponin: Could be due to decompensated heart failure. Cannot exclude ischemic heart disease. Did not present with acute coronary syndrome but has been having "constant" chest discomfort. 8. Chest tightness: Could be due to heart failure versus ischemic heart disease. Recommendations as noted. 9. Disposition: Recommended continued hospitalization for optimization of his heart failure, initiation of medical therapy, and for coronary angiography. He acknowledged recommendations but declines and states that he is leaving. Primary hospitalist service was preparing paperwork for leaving AGAINST MEDICAL ADVICE. Recommended close follow-up with labs on Tuesday, as he will be discharged home on oral Lasix and low-dose Entresto. He was agreeable to have labs done on Tuesday. Recommend follow-up on Tuesday as well in the heart failure program. He does not wish to follow-up here with [facility] due to distance from his home. He would like to follow-up with cardiology in the [place] area. Recommended that he call a health and safety specialist in his local area to establish care immediately. He agreed that he would follow-up in the outpatient setting closer to home. He agreed to have labs later this week. Primary hospitalist service will supply him with a lab request/order to evaluate electrolytes and renal function. Plan of care was discussed with primary hospitalist service, Dr. Sol and Dr. Kyle. Highly complex medical issues. Thank you for allowing me to participate in the care of your patient. Please call for any other questions or concerns. Sincerely, Gennaro Gillette M.D. History of Present Illness Reason for Consultation: "New onset heart failure, reluctance for care" Requesting Physician: Nay Sol MD Attending Physician: Nay Sol MD History of Present Illness Mr. Hidalgo is a pleasant 53-year-old gentleman with a history significant for hypertension and dyslipidemia. He was admitted on 06/09/2024 with acute heart failure. For the past 3 weeks, he has noted dyspnea on exertion. He also noted a tightness in the substernal chest area that has been "constant." He had more significant tightness yesterday morning, and he was concerned that he may be having a myocardial infarction and presented to the hospital for evaluation. He has not noted any edema. He does not weigh himself. He does not maintain a low-sodium diet. He denies syncope, near syncope, palpitations, melena, hematochezia, hematuria, orthopnea. While here, he has received diuretic and admits that he has urinated significantly. He feels much better, near baseline but admits that he has not been active while here. He does not follow-up with his PCP on a regular basis, but rather as needed. He recalls being placed on a statin therapy in the past but does not recall which statin it was. He states that he did not tolerate statin therapy. He takes hydralazine for his blood pressure at home. He typically is out of town for most of the week. 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 He stated that he is leaving today and does not wish to remain here for any further care as he is leaving for [place] today for tomorrow's work. Review of systems: As above. Family history: Father had CAD with PCI. Social history: Denies smoking, alcohol, or drug abuse. Not . 2 adult children (son in [place] and daughter [place]). 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 Lives alone in [place], [place]. Unaccompanied. Allergies Allergy/AdvReac Type Severity Reaction Status Date / Time No Known Allergies Allergy Unverified 06/09/24 15:57 Home Medications Medication Instructions Recorded Confirmed Type aspirin 81 mg tablet,delayed 81 mg PO DAILY #30 tabs 06/10/24 Rx release furosemide 40 mg tablet 40 mg PO DAILY #30 tabs 06/10/24 Rx metoprolol succinate 50 mg capsule 50 mg PO DAILY #30 ea 06/10/24 Rx sprinkle, ext. release 24 hr sacubitril 24 mg-valsartan 26 mg 1 tab PO BID #60 tabs 06/10/24 Rx tablet (Entresto) Problem List (Updated 06/10/24 @ 15:12 by Jono Gillette MD) Chest pain Elevated troponin Dyslipidemia Pulmonary hypertension Cardiomyopathy Acute HFrEF (heart failure with reduced ejection fraction) New onset of congestive heart failure (Acute) Acute non-ST elevation myocardial infarction (NSTEMI) (Acute) Acute kidney injury Hypertension Shortness of breath Patient History Social History Smoking Status: Never smoker Tobacco Type: Smokeless Tobacco (Dip or Chew) Do You Dip or Chew Tobacco: Yes; Hx Alcohol Use: Yes Alcohol type: beer Hx Substance Use: No Preferred Language: Spanish Communication Ability: Effective Machinist Brake Required: No Beliefs That Will Affect Care: None Current Living Situation: Alone Current Living Situation Comment: in camper or motel while remodeling home Feels Safe at Home: Yes Assistive Devices: None Physical Exam Physical Exam: Gen.: No acute distress. Alert and oriented. HEENT: Anicteric sclera. Neck: Thick neck. No bruits. Normal carotid upstrokes bilaterally. Cardiac: Regular. Normal S1-S2. No murmurs, rubs, or gallops. Pulmonary: Clear to auscultation bilaterally without wheezes, rales, or rhonchi. Abdomen: Soft, nontender, nondistended, with normoactive bowel sounds. No bruits noted. Extremities: 2+ radial pulses bilaterally. 2+ posterior tibialis pulses bilaterally. Trace bilateral lower extremity edema. No cyanosis. Results & Data Vital Signs (Past 12 Hours) Vital Signs Temp Pulse Pulse Pulse Resp BP BP 06/10/24 11:06 36.6 C 82 88 16 149/102 H 124/74 06/10/24 08:00 06/10/24 07:53 36.6 C 88 16 149/102 H 06/10/24 07:00 76 06/10/24 02:53 36.3 C L 87 18 138/89 Pulse Ox O2 Del Method 06/10/24 11:06 95 06/10/24 08:00 Room Air 06/10/24 07:53 95 Room Air 06/10/24 07:00 06/10/24 02:53 91 Room Air Intake & Output 06/08/24 06/09/24 06/10/24 06/11/24 06:59 06:59 06:59 06:59 Intake Total 1071.266 / 1071.266 183.734 / 183.734 Output Total 1375 / 1375 Balance -303.734 / -303.734 183.734 / 183.734 Weight 277 lb 1.937 oz 277 lb 1.937 oz Laboratory Results Laboratory Results - last 24 hr 06/09/24 06/09/24 06/09/24 12:40 14:42 22:48 WBC 9.74 RBC 5.38 Hgb 15.0 Hct 45.2 MCV 84.0 MCH 27.9 MCHC 33.2 RDW Std Deviation 41.1 RDW Coeff of Doris 13.6 Plt Count 237 MPV 10.2 Immature Gran % (Auto) 0.6 Neut % (Auto) 71.7 Lymph % (Auto) 20.3 Boyle % (Auto) 5.1 Eos % (Auto) 1.6 Baso % (Auto) 0.7 Neut # (Auto) 6.97 H Lymph # (Auto) 1.98 Boyle # (Auto) 0.50 Eos # (Auto) 0.16 Baso # (Auto) 0.07 Immature Gran # (Auto) 0.06 PT 11.3 INR 1.0 APTT 27 PTT Ratio 1.0 Heparin Anti-Xa, Unfract 0.11 L Sodium 141 Potassium 3.8 Chloride 106 Carbon Dioxide 26 Anion Gap 9 BUN 18 Creatinine 1.43 H Est Cr Clr Drug Dosing 79.6 eGFR 58.59 BUN/Creatinine Ratio 12.6 Glucose 155 H Estimat Average Glucose Hemoglobin A1c Calcium 9.3 Total Bilirubin 0.5 AST 30 ALT 57 H Alkaline Phosphatase 63 Troponin I High Sens 57.6 H* 59.0 H* B-Natriuretic Peptide Total Protein 7.1 Albumin 4.1 Globulin 3.0 Albumin/Globulin Ratio 1.4 Triglycerides Cholesterol LDL Cholesterol, Calc VLDL Cholesterol, Calc HDL Cholesterol Cholesterol/HDL Ratio 06/10/24 06/10/24 05:29 08:58 WBC 9.34 RBC 5.03 Hgb 14.1 Hct 42.1 MCV 83.7 MCH 28.0 MCHC 33.5 RDW Std Deviation 41.1 RDW Coeff of Doris 13.5 Plt Count 221 MPV 10.6 Immature Gran % (Auto) 0.4 Neut % (Auto) 65.7 Lymph % (Auto) 23.7 Boyle % (Auto) 6.4 Eos % (Auto) 3.2 Baso % (Auto) 0.6 Neut # (Auto) 6.13 Lymph # (Auto) 2.21 Boyle # (Auto) 0.60 H Eos # (Auto) 0.30 Baso # (Auto) 0.06 Immature Gran # (Auto) 0.04 PT INR APTT PTT Ratio Heparin Anti-Xa, Unfract 0.12 L Sodium 139 Potassium 3.9 Chloride 104 Carbon Dioxide 27 Anion Gap 8 BUN 20 Creatinine 1.50 H Est Cr Clr Drug Dosing 75.9 eGFR 55.32 BUN/Creatinine Ratio 13.3 Glucose 156 H Estimat Average Glucose 131 Hemoglobin A1c 6.2 H Calcium 9.0 Total Bilirubin 0.6 AST 25 ALT 49 Alkaline Phosphatase 49 Troponin I High Sens B-Natriuretic Peptide 367 H Total Protein 6.5 Albumin 3.8 Globulin 2.7 Albumin/Globulin Ratio 1.4 Triglycerides 151 H Cholesterol 200 LDL Cholesterol, Calc 127 VLDL Cholesterol, Calc 30 HDL Cholesterol 43 Cholesterol/HDL Ratio 4.7 Diagnostic Findings ECHO 06/10/2024: 1. Normal left ventricular size with moderately to severely reduced systolic function. EF 30-35%. Global hypokinesis. Moderate concentric left ventricular hypertrophy. 2. Borderline dilated right ventricle with mildly reduced systolic function. 3. Mild left atrial dilation. 4. Mild mitral regurgitation. 5. Mild pulmonary hypertension. Estimated RVSP 44 mmHg. 6. Technically difficult study, enhanced with IV Definity. 7. No prior study available for comparison. Labs reviewed and notable for elevated BNP, peak high-sensitivity troponin of 59, normal potassium, abnormal renal function, elevated A1c, normal transaminase levels, normal blood counts. ECG personally reviewed 06/09/2024: Sinus tachycardia 112 bpm. Chest x-ray 06/09/2024: Pulmonary vascular congestion. CTA chest 06/09/2024: No pulmonary embolism. Moderate bilateral pleural effusions. Interstitial pulmonary edema throughout lung bases per radiology. History and physical report reviewed. Medications Administered Current Inpatient Medications Acetaminophen (Acetaminophen 325 Mg Tab) 650 mg PO Q4H PRN PRN Reason: Pain or Fever Stop: 07/09/24 17:39 Last Admin: 06/10/24 06:09 Dose: 650 mg Hydralazine HCl (Hydralazine Tab 50 Mg Tab) 50 mg PO TID [facility] Stop: 07/09/24 20:59 Last Admin: 06/10/24 08:07 Dose: 50 mg Heparin Sodium/Dextrose (Heparin Sodium/Dextrose) 25,000 units in 500 mls @ 28 mls/hr IV .[id number] [facility]; Protocol Stop: 07/09/24 16:14 Last Titration: 06/10/24 06:39 Dose: 1,400 units/hr, 28 mls/hr Metoprolol Tartrate (Metoprolol Tartrate 50 Mg Tab) 50 mg PO BID [facility] Stop: 07/09/24 20:59 Last Admin: 06/10/24 08:07 Dose: 50 mg Nitroglycerin (Nitroglycerin Sl 0.4 Mg/Tab Tab) 0.4 mg SL Q5M PRN PRN Reason: Chest Pain Stop: 07/09/24 17:39 Ondansetron HCl (Ondansetron Inj 2 Mg/Ml 2 Ml Vial) 4 mg IV Q6H PRN PRN Reason: Nausea Stop: 07/09/24 17:39 Polyethylene Glycol (Polyethylene (Miralax) 17 Gm Pack) 17 gm PO DAILY PRN PRN Reason: Constipation Stop: 07/09/24 17:39 PG Care Time/CCT Total # of Minutes Spent Total Time Spent with Patient: Total time spent is greater than 50% in coordination of care (as documented) at patient's floor/unit and/or counseling patient: Coding Level of Care Code 88004 INT INP/OBS CARE 375MIN Diagnoses Acute HFrEF (heart failure with reduced ejection fraction) I50.21 Cardiomyopathy I42.9 Pulmonary hypertension I27.20 Hypertension I10 Dyslipidemia E78.5 Elevated troponin R79.89 Chest pain R07.9
--- NOTE | 2024-06-11 19:05 | Electrocardiogram Report ---
Test Reason : Blood Pressure : */* mmHG Vent. Rate : 112 BPM Atrial Rate : 112 BPM P-R Int : 124 ms QRS Dur : 92 ms QT Int : 346 ms P-R-T Axes : 55 -17 94 degrees QTcB Int : 472 ms Sinus tachycardia Nonspecific T wave abnormality No previous ECGs available Confirmed by Jono Gillette ([id number]) on 06/11/2024 7:04:29 PM Referred By: Confirmed By: Jono Gillette
== END 2024-06-10 12:31 | disposition left against medical advice (07) | DRG 280 ==
LOC: ED 12:28 → 2N 16:02